=== PATIENT | female | born 1960 | race Caucasian/White ===

== ENCOUNTER → 2016-11-03 | Outpatient (REF) ==
[2011-06-06 11:40] VITALS: BP 121/64
[~2016-11-03] MED LIST: CALCARB 600 W/V1 TA1 PO; DETROL LA 4MG4 MG PO; EPA FISH OIL1000 MG PO; MULTIVITAMIN FO1 CAP PO; OMEGA 3-6-9 11200 MG PO; RANITIDINE150 MG PO; VESICARE10 MG PO
== END ==
LOC: LAB 07:00
DX: Z00.00 Encounter for general adult medical examination without abnormal findings (principal); Z23 Encounter for immunization; E78.2 Mixed hyperlipidemia; K21.9 Gastro-esophageal reflux disease without esophagitis; I34.0 Nonrheumatic mitral (valve) insufficiency; J30.9 Allergic rhinitis, unspecified

== ENCOUNTER → 2017-06-02 | Outpatient (CLI) | payer BC ==
[2011-06-06 11:40] VITALS: BP 121/64
== END ==
LOC: LAB 10:46
DX: J06.9 Acute upper respiratory infection, unspecified (principal); Z88.1 Allergy status to other antibiotic agents; Z88.0 Allergy status to penicillin

== ENCOUNTER → 2019-11-10 | Outpatient (CLI) | payer BC ==
[2011-06-06 11:40] VITALS: BP 121/64
== END ==
LOC: LAB 10:16
DX: Z01.812 Encounter for preprocedural laboratory examination (principal); Z20.828 Contact with and (suspected) exposure to other viral communicable diseases

== ENCOUNTER → 2019-11-14 | Day surgery (SDC) | payer BC ==
[2011-06-06 11:40] VITALS: BP 121/64
== END ==
LOC: MSO 08:13
DX: Z12.11 Encounter for screening for malignant neoplasm of colon (principal); K63.5 Polyp of colon; K21.9 Gastro-esophageal reflux disease without esophagitis; I34.1 Nonrheumatic mitral (valve) prolapse; I34.0 Nonrheumatic mitral (valve) insufficiency; Z79.899 Other long term (current) drug therapy; Z88.0 Allergy status to penicillin; Z79.82 Long term (current) use of aspirin
CPT/HCPCS: 00811; J2704; J7120

== ENCOUNTER → 2020-07-12 | Outpatient (CLI) | payer BC ==
[2018-09-13 12:33] VITALS: BP 140/81
== END ==
LOC: MAMMO 16:28
DX: Z12.31 Encounter for screening mammogram for malignant neoplasm of breast (principal)

== ENCOUNTER → 2021-05-30 | Outpatient (CLI) | payer BC | LOC: RAD 09:58 | DX: J34.2 Deviated nasal septum (principal) ==

== ENCOUNTER → 2021-07-17 | Outpatient (CLI) | payer BC | LOC: MAMMO 08:19 | DX: Z12.31 Encounter for screening mammogram for malignant neoplasm of breast (principal) ==

== ENCOUNTER → 2021-11-28 | Outpatient (REF) | LOC: LAB 15:15 | DX: R31.9 Hematuria, unspecified (principal) ==

== ENCOUNTER → 2021-12-12 | Outpatient (REF) | LOC: LAB 09:56 | DX: R31.9 Hematuria, unspecified (principal) ==

== ENCOUNTER → 2022-07-17 | Outpatient (CLI) | payer BC | LOC: MAMMO 08:28 | DX: Z12.31 Encounter for screening mammogram for malignant neoplasm of breast (principal) ==

== ENCOUNTER → 2023-12-04 | Outpatient (CLI) | payer MEDICARE, BC | LOC: MAMMO 09:00 | DX: Z12.31 Encounter for screening mammogram for malignant neoplasm of breast (principal) ==